=== PATIENT | male | born 1965 | race Caucasian/White ===

== ENCOUNTER → 2018-04-13 | Outpatient (CLI) | payer OTHER ==
[~2018-04-13] MED LIST: AMPH20TA18 PO; HYDR-385 PO; KET10 PO; LAMO2TB.; ONDA4TAB PO; POTA25TA28 PO
--- NOTE | 2018-04-13 17:46 | RADIOLOGY IMAGING REPORT ---
[place] [facility] [place] Kings Olmedo : 1965 MR: [id number] V: [id number] EXAM DATE: ORDERING PHYSICIAN: [facility] TECHNOLOGIST: Location: [facility] Patient: Kings Olmedo : 1965 Visit/Account:[id number] Date of Sevice: 04/13/2018 RIBS LEFT INDICATION: Inferior left rib pain after fall COMPARISON: None available FINDINGS: Heart size within normal limits. There is no focal infiltrate or lobar consolidation. There is no pneumothorax or pleural effusion. Left rib series is negative IMPRESSION: 1. Negative left rib series Report Dictated By: Shar Zhang at 04/13/2018 5:42 PM Report E-Signed By: Shar Zhang at 04/13/2018 5:42 PM WSN:[id number]
== END ==
LOC: RAD 12:55
DX: R07.2 Precordial pain (principal)
CPT/HCPCS: 71100